=== PATIENT | female | born 1980 | race Caucasian/White ===

== ENCOUNTER → 2020-09-02 10:56 | Outpatient (BNVA) | payer SELFPAY | PROVIDERS: Family Provider Family Medicine; PCP Family Medicine; Visit Provider Nurse Practitioner Family | DX: E55.9 Vitamin D deficiency, unspecified (principal); Z79.899 Other long term (current) drug therapy; Z13.6 Encounter for screening for cardiovascular disorders; I10 Essential (primary) hypertension; R63.8 Other symptoms and signs concerning food and fluid intake; M54.16 Radiculopathy, lumbar region | CPT/HCPCS: 80053; 80061; 81003; 82306; 82530; 83036; 84439; 84443; 85025 ==

== ENCOUNTER → 2023-07-06 09:52 | Outpatient (BNVA) | payer SELFPAY | PROVIDERS: Family Provider Family Medicine; PCP Family Medicine; Visit Provider Family Medicine | DX: I10 Essential (primary) hypertension (principal) | CPT/HCPCS: 80053; 85025 ==

== ENCOUNTER 2023-12-28 15:50 | Outpatient (CLI) | payer MEDICAID, SELFPAY ==
--- NOTE | 2023-12-28 16:00 | MR_ITS ---
WS: [id number] MRI LUMBAR SPINE NONCONTRAST HISTORY: M54.9 - Dorsalgia, unspecified COMPARISON: CT pelvis 08/16/2016 TECHNIQUE: Sagittal and axial multisequence imaging is submitted. Artifact through the L5-S1 region from sacral screw fixation. Normal lumbar alignment with no compression fractures or marrow edema. Disc spaces and vertebral body heights are well-preserved. Conus terminates normally at L1-2 disc level. L1-L2: Normal. L2-L3: Normal. L3-L4: Mild annular disc bulging with a LEFT foraminal disc protrusion. Mild LEFT foraminal stenosis with mild disc contact on the traversing LEFT L3 nerve root. L4-L5: Mild annular disc bulge with a central disc exiting and annular fissure. Very mild osteophytic ridging.. Mild foraminal narrowing. Moderate ligamentum flavum hypertrophy encroaching upon the cent ral canal. Mild central and subarticular recess stenosis. L5-S1: Diffuse annular disc bulging. There is slight disc encroachment upon the S1 nerve roots. Mild narrowing of the RIGHT foramen. No LEFT foraminal stenosis. Paravertebral soft tissues are normal. MR/MR lumbar spine wo con* [id number] IMPRESSION: 1. L3-4: Mild disc bulging with a LEFT foraminal disc protrusion causing mild foraminal stenosis. Mild contact on the exiting LEFT L3 nerve root. 2. L4-5: Small central disc protrusion with ligamentum flavum hypertrophy. Mil d central and bilateral subarticular recess stenosis. 3. L5-S1: Mild RIGHT foraminal stenosis due to disc osteophyte disease.
== END 2023-12-28 15:51 | disposition home or self-care (01) ==
PROVIDERS: Family Provider Family Medicine; PCP Family Medicine; Visit Provider Family Medicine
DX: M50.20 Other cervical disc displacement, unspecified cervical region (principal); M54.16 Radiculopathy, lumbar region; Z98.890 Other specified postprocedural states; G89.29 Other chronic pain; M62.838 Other muscle spasm
CPT/HCPCS: 72148

== ENCOUNTER → 2024-01-03 08:09 | Outpatient (BNVA) | payer MEDICAID, SELFPAY | PROVIDERS: Family Provider Family Medicine; PCP Family Medicine; Visit Provider Orthopaedic Surgery | DX: M54.9 Dorsalgia, unspecified (principal); G89.29 Other chronic pain; M54.50 Low back pain, unspecified; M48.062 Spinal stenosis, lumbar region with neurogenic claudication | CPT/HCPCS: 72110 ==